=== PATIENT | male | born 1965 | race Two or more races ===

== ENCOUNTER 2023-03-14 20:28 | Emergency (ER) | payer OTHER ==
[~2023-03-14] VITALS: Ht 170.2 cm; Wt 83.5 kg
== END 2023-03-14 22:50 | disposition home or self-care (01) ==
LOC: ER 20:29
DX: S81.822A Laceration with foreign body, left lower leg, initial encounter (principal); W25.XXXA Contact with sharp glass, initial encounter; Y93.89 Activity, other specified; Y92.89 Other specified places as the place of occurrence of the external cause

== ENCOUNTER 2023-03-20 15:06 | Emergency (ER) | payer OTHER ==
[~2023-03-20] VITALS: Ht 170.2 cm; Wt 83.5 kg
== END 2023-03-20 15:35 | disposition home or self-care (01) ==
LOC: ER 15:06
DX: Z48.02 Encounter for removal of sutures (principal)